=== PATIENT | male | born 1945 | race Caucasian/White ===

== ENCOUNTER 2019-05-21 21:15 | Emergency (ER) | payer OTHER, MEDICARE ==
[2019-05-21 21:19] VITALS: BP 172/82; PULSE 78; TEMP 98; BMI 27.4
--- NOTE | 2019-05-22 00:22 | PDOC ---
*Physical Exam - Vital Signs Last Vital Signs Temp Pulse Resp BP Pulse Ox 98 F 78 18 172/82 H 98 05/21/19 21:16 05/21/19 21:16 05/21/19 21:16 05/21/19 21:16 05/21/19 21:16 - Physical Exam Comments: 05/22/19 00:21 The patient was examined by [APPLICATION SECURITY ARCHITECT Thor] under my direct supervision. I personally evaluated the patient. I concur with the above findings and the plan of care. *DC/Admit/Observation/Transfer - Referrals Referrals: Rico Cole MD [Primary Care Provider] - - Patient Instructions - Post Discharge Activity
--- NOTE | 2019-05-22 00:40 | PDOC ---
History of Present Illness - General Chief Complaint: Pain Stated Complaint: PAIN IN GROIN Time Seen by Provider: 05/22/19 00:12 History Source: Patient Exam Limitations: No Limitations - History of Present Illness Initial Comments: 05/22/19 00:33 HISTORY OF PRESENT ILLNESS: This 74-year-old male past medical history of Parkinson's disease presents emergency department for evaluation of mass to his right groin starting today. Patient noted he went to the bathroom and when he was finished sore a soft mass on his right groin. Denies any pain, fevers, chills. No recent travel or sick contacts. PAST MEDICAL HISTORY: see HPI SURGICAL HISTORY: Denies ALLERGIES: No known drug allergies REVIEW OF SYSTEMS General/Constitutional: Denies fever or chills. Denies weakness, weight change. HEENT: Denies change in vision. Denies ear pain or discharge. Denies sore throat. Cardiovascular: Denies chest pain or shortness of breath. Respiratory: Denies cough, wheezing, or hemoptysis. Gastrointestinal: Denies nausea, vomiting, diarrhea or constipation. Denies rectal bleeding. Genitourinary: see HPI Musculoskeletal: Denies joint or muscle swelling or pain. Denies neck or back pain. Skin and breasts: Denies rash or easy bruising. Neurologic: Denies headache, vertigo, loss of consciousness, or loss of sensation. Psychiatric: Denies depression or anxiety. Endocrine: Denies increased thirst. Denies abnormal weight change. Hematologic/Lymphatic: Denies anemia, easy bleeding, or history of blood clots. Allergic/Immunologic: Denies hives or skin allergy. Denies latex allergy. PHYSICAL EXAM General Appearance: Well-appearing, appropriately dressed. No apparent distress , no intoxication. Respiratory/Chest: Lungs CTAB. No shortness of breath, chest tenderness, respiratory distress, accessory muscle use. No crackles, rales, rhonchi, stridor , wheezing, dullness Cardiovascular: RRR. S1, S2. No JVD, murmur, bradycardia, tachycardia. Vascular Pulses: Dorsalis-Pedis (R): 2+, Dorsalis-Pedis (L): 2+ Gastrointestinal/Abdominal: Normal bowel sounds. Abdomen soft, non-distended. No tenderness or rebound tenderness. No organomegaly, pulsatile mass, guarding, hepatomegaly, splenomegaly. Soft mobile mass present to the right inguinal region consistent with an indirect inguinal hernia. Mass is easily reducible. Patient tolerated reduction of the mass well. No direct inguinal hernia present on palpation. No scrotal involvement noted. Lymphatic: No adenopathy, tenderness. 05/22/19 00:47 Past History - Past Medical History Allergies/Adverse Reactions: Allergies Allergy/AdvReac Type Severity Reaction Status Date / Time No Known Allergies Allergy Verified 05/21/19 21:19 COPD: No Thyroid Disease: Yes (partial) Other medical history: parkinsons - Suicide/Smoking/Psychosocial Hx Smoking History: Never smoked *Physical Exam - Vital Signs Last Vital Signs Temp Pulse Resp BP Pulse Ox 98 F 78 18 172/82 H 98 05/21/19 21:16 05/21/19 21:16 05/21/19 21:16 05/21/19 21:16 05/21/19 21:16 Medical Decision Making - Medical Decision Making 05/22/19 00:32 A/P: 74-year-old male with right indirect inguinal hernia Hernia easily reducible. No pain with palpation of the area or during reduction No scrotal involvement present. Will discharge the patient home to follow-up with surgery continued evaluation I discussed the physical exam findings, ancillary test results and final diagnoses with the patient. I answered all of the patient's questions. The patient was satisfied with the care received and felt comfortable with the discharge plan and treatment plan. The patient will call their primary care physician within 24 hours to arrange follow-up and will return to the Emergency Department with any new, persistent or worsening symptoms. Portions of this note have been documented using voice recognition software. As a result, errors may occur in the chicken dresser process. Effort has been made to correct all grammatical and chicken dresser error, but some may have been missed. 05/22/19 00:49 *DC/Admit/Observation/Transfer Diagnosis at time of Disposition: Inguinal hernia Qualifiers: Obstruction and gangrene presence: without obstruction or gangrene Laterality: unilateral Recurrence: not specified as recurrent Qualified Code(s): K40.90 - Unilateral inguinal hernia, without obstruction or gangrene, not specified as recurrent - Discharge Dispostion Disposition: HOME Condition at time of disposition: Stable Decision to Admit order: No - Referrals Referrals: Rico Cole MD [Primary Care Provider] - Flynn Peterson MD [Staff Physician] - - Patient Instructions Additional Instructions: No heavy lifting. You've been given a referral for general surgeon. Call to schedule an appointment for reevaluation of a hernia and potential surgery. Take Tylenol or Motrin as needed for pain. Return to emergency department should she develop extreme pain, fevers, chills, vomiting or for any other concerns. Thank you very much for choosing us to provide your emergent health care needs. - Post Discharge Activity
== END 2019-05-22 01:07 | disposition home or self-care (01) ==
LOC: JER 21:15
DX: K40.90 Unilateral inguinal hernia, without obstruction or gangrene, not specified as recurrent (principal); G20 Parkinson's disease
CPT/HCPCS: 99282-25